=== PATIENT | male | born 1960 | race Caucasian/White ===

== ENCOUNTER → 2016-05-30 | Outpatient (CLI) | payer OTHER ==
[~2016-05-30] MED LIST: ACET325C PO; ASPI-496 PO; ASPI325T4 PO; ATOR20TA9 PO; BISA10SU13 PR; CALC500T PO; DOCU-30 PO; FAMO-79 PO; GADOBUTROL 7.5 MMOL/7.5 ML PFS ONE; HEPA500024 SQ; INSU100C5 SQ-INSULIN; INSU100I18 SQ-INSULIN; INSU100I28 SC; INSU100I28 SQ-INSULIN; INSU100V13 SQ; METF500T4 PO; METO25TA35 PO; ONDA4TAB7 PO; OXYC-229 PO; POLY17PO5 PO
== END | disposition home or self-care (01) ==
LOC: CFH 15:03
PROVIDERS: ATTEND Neurological Surgery
DX: D36.10 Benign neoplasm of peripheral nerves and autonomic nervous system, unspecified (principal); M51.36 Other intervertebral disc degeneration, lumbar region; G95.89 Other specified diseases of spinal cord
CPT/HCPCS: 72149; 82565; A9585